=== PATIENT | male | born 1990 | race Caucasian/White ===

== ENCOUNTER 2019-07-21 13:34 | Emergency (ER) | payer MEDICAID, OTHER ==
[2019-07-21 13:45] VITALS: BP 120/78
--- NOTE | 2019-07-21 13:57 | UC ---
Throat Pain/Nasal Cas HPI - HPI Summary HPI Summary: fevers chills, cough and body aches for 3-4 days--- - History of Current Complaint Chief Complaint: UCGeneralIllness Stated Complaint: COUGH, AND ACHES Time Seen by Provider: 07/21/19 13:37 Hx Obtained From: Patient Onset/Duration: Sudden Onset, Lasting Days - 3-4, Still Present Pain Intensity: 7 Pain Scale Used: 0-10 Numeric Cough: Nonproductive Associated Signs & Symptoms: Positive: Fever Related History: Smoking - Allergies/Home Medications Allergies/Adverse Reactions: Allergies Allergy/AdvReac Type Severity Reaction Status Date / Time No Known Allergies Allergy Verified 07/21/19 13:47 Home Medications: Home Medications Buprenorp/Nalox 8-2 MG FILM [Suboxone 8 mg-2 mg Sl Film] 2 mis SL DAILY WITH MEAL 07/21/19 [History Confirmed 07/21/19] Omeprazole 20 mg PO DAILY WITH MEAL 07/21/19 [History Confirmed 07/21/19] PMH/Surg Hx/FS Hx/Imm Hx Previously Healthy: No - Opiate use disorder on MAT GI/ History: Gastroesophageal Reflux - Surgical History Surgical History: Yes Surgery Procedure, Year, and Place: R arm compound fracture 1995 - Family History Known Family History: Positive: Hypertension, Other - copd / asthma - Social History Occupation: Unemployed Lives: Alone - is homeless living in a hotel Alcohol Use: None Substance Use Type: None Smoking Status (MU): Heavy Every Day Tobacco Smoker Type: Cigarettes Amount Used/How Often: 1 ppd Length of Time of Smoking/Using Tobacco: 5 YRS Have You Smoked in the Last Year: Yes - Immunization History Most Recent Influenza Vaccination: 2012 Review of Systems All Other Systems Reviewed And Are Negative: Yes Constitutional: Positive: Chills, Fatigue Skin: Positive: Negative Eyes: Positive: Negative ENT: Positive: Sore Throat, Nasal Discharge, Sinus Congestion Respiratory: Positive: Cough Cardiovascular: Positive: Negative Gastrointestinal: Positive: Negative Genitourinary: Positive: Negative Motor: Positive: Negative Neurovascular: Positive: Negative Musculoskeletal: Positive: Arthralgia, Myalgia Neurological: Positive: Negative Psychological: Positive: Negative Is Patient Immunocompromised?: No Physical Exam Triage Information Reviewed: Yes Appearance: No Pain Distress, Well-Nourished, Ill-Appearing - mild Vital Signs: Initial Vital Signs Temp 98.7 F 07/21/19 13:42 Pulse 103 07/21/19 13:42 Resp 18 07/21/19 13:42 BP 120/78 07/21/19 13:42 Pulse Ox 95 07/21/19 13:42 Vital Signs Reviewed: Yes Eye Exam: Normal Eyes: Positive: Conjunctiva Clear ENT Exam: Normal ENT: Positive: Normal ENT inspection, Hearing grossly normal, Pharynx normal, TMs normal, Sinus tenderness, Uvula midline. Negative: Nasal congestion, Tonsillar swelling, Tonsillar exudate, Trismus, Muffled voice, Hoarse voice, Dental tenderness Dental Exam: Normal Neck exam: Normal Neck: Positive: Supple, Nontender Respiratory Exam: Other Respiratory: Positive: Chest non-tender, No respiratory distress, No accessory muscle use, Wheezing Cardiovascular Exam: Normal Cardiovascular: Positive: RRR, No Murmur, Pulses Normal, Brisk Capillary Refill Musculoskeletal Exam: Normal Musculoskeletal: Positive: Strength Intact, ROM Intact, No Edema Neurological Exam: Normal Neurological: Positive: Alert, Muscle Tone Normal, Fatigued Skin Exam: Normal Diagnostics - Laboratory Lab Results: influenza B+ Re-Evaluation - Re-Evaluation First Eval Change: Improved - increased air movement after neb-- Throat Pain/Nasal Course/Dx - Course Course Of Treatment: albuterol, ibuprofen increase fluids follow with pcp prn - Differential Dx/Diagnosis Provider Diagnosis: Influenza B, Nicotine dependence Discharge ED - Sign-Out/Discharge Documenting (check all that apply): Patient Departure All imaging exams completed and their final reports reviewed: No Studies - Discharge Plan Condition: Stable Disposition: HOME Prescriptions: Albuterol HFA INHALER* [Ventolin HFA Inhaler*] 2 puff INH Q4H PRN #1 mdi PRN Reason: Cough Ibuprofen TAB* [Motrin TAB* 600 MG] 600 mg PO Q6H PRN #40 tab PRN Reason: body aches, fever Patient Education Materials: Influenza (ED), Wheezing (ED) Referrals: [facility] [Outside] - If Needed - Billing Disposition and Condition Condition: STABLE Disposition: Home
[2019-07-21 14:10] LABS: Influenza B Molecular POSITIVE (Negative)
[2019-07-21] MEDS ORDERED: Albuterol/Ipratropium NEB.SOL* Albuterol 2.5 MG/Ipratropium 0.5 MG 3 ML INH ONE (14:11)
[2019-07-21] MEDS ORDERED: Ibuprofen TAB* 600 MG PO ONE (14:11)
== END 2019-07-21 14:47 | disposition home or self-care (01) ==
LOC: UCEAST 13:34
DX: J11.1 Influenza due to unidentified influenza virus with other respiratory manifestations (principal); K21.9 Gastro-esophageal reflux disease without esophagitis; F17.210 Nicotine dependence, cigarettes, uncomplicated; Z79.899 Other long term (current) drug therapy
CPT/HCPCS: 87651; 99202; A9270-GY; G0463

== ENCOUNTER 2019-10-11 09:42 | Emergency (ER) | payer OTHER ==
--- NOTE | 2019-10-11 10:06 | ED ---
Upper Extremity Pain - HPI Summary HPI Summary: 29 year old M arriving via private car to [facility] complains of right hand pain and swelling for 1 week. Patient is left handed. 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 He states he does a lot of squeezing and gripping at work. For the past week, his right hand has felt tense and tingly and his right arm has felt numb when he wakes up. This morning when he woke up, he wasn't able to close his right hand to make a fist. Symptoms aggravated by nothing. Symptoms alleviated by nothing. Medications reviewed. He has been taking naproxen 550 mg every 12 hours per nurse. On Suboxone. On Augmentin currently. Allergies noted. Current smoker. - History of Current Complaint Chief Complaint: EDExtremityUpper Stated Complaint: SWOLLEN RIGHT ARM PER PT Time Seen by Provider: 10/11/19 09:53 Hx Obtained From: Patient Onset/Duration: Started Weeks Ago - 1, Still Present, Worse Since - this morning Timing: Constant, Lasting Weeks - 1 Severity Currently: None Pain Location: Hand - R Aggravating Factor(s): Nothing Alleviating Factor(s): Nothing - Allergies/Home Medications Allergies/Adverse Reactions: Allergies Allergy/AdvReac Type Severity Reaction Status Date / Time No Known Allergies Allergy Verified 10/11/19 09:26 Home Medications: Home Medications Albuterol HFA INHALER* [Ventolin HFA Inhaler*] 2 puff INH Q4H PRN #1 mdi [Rx Confirmed 10/11/19] Buprenorp/Nalox 8-2 MG FILM [Suboxone 8 mg-2 mg Sl Film] 3 mis SL DAILY WITH MEAL 07/21/19 [History Confirmed 10/11/19] Omeprazole 20 mg PO DAILY WITH MEAL 07/21/19 [History Confirmed 10/11/19] Amoxicillin 500 mg PO TID 10/11/19 [History Confirmed 10/11/19] Gabapentin 800 mg PO TID 10/11/19 [History Confirmed 10/11/19] Ibuprofen TAB* [Motrin TAB* 800 MG] 800 mg PO TID PRN 10 Days #30 tab 10/11/19 [ Rx] Naproxen Sodium [Naproxen 550 mg tab] 1 tab PO Q12H 10/11/19 [History Confirmed 10/11/19] PMH/Surg Hx/FS Hx/Imm Hx Endocrine/Hematology History: Denies: Hx Diabetes, Hx Thyroid Disease Cardiovascular History: Denies: Hx Hypertension Respiratory History: Denies: Hx Asthma, Hx Chronic Obstructive Pulmonary Disease (COPD) Sensory History: Denies: Hx Contacts or Glasses Opthamlomology History: Denies: Hx Contacts or Glasses Psychiatric History: Reports: Hx Anxiety - CONTROL WITH MED - Surgical History Surgery Procedure, Year, and Place: R arm compound fracture 1995 Hx Anesthesia Reactions: No Infectious Disease History: No Infectious Disease History: Denies: Hx Hepatitis, Hx Human Immunodeficiency Virus (HIV), History Other Infectious Disease, Traveled Outside the [place] in Last 30 Days - Family History Known Family History: Positive: Hypertension, Other - copd / asthma Family History: DVT in aunt - Social History Alcohol Use: None Hx Substance Use: Yes Substance Use Type: Reports: Marijuana Substance Use Comment - Amount & Last Used: SUBOXONE AND MARIJUANA Hx Tobacco Use: Yes Smoking Status (MU): Heavy Every Day Tobacco Smoker Type: Cigarettes Amount Used/How Often: 1 ppd Length of Time of Smoking/Using Tobacco: 5 YRS Have You Smoked in the Last Year: Yes Review of Systems Positive: Other - right hand pain and swelling Neurological/Mental Status: Other - right hand has felt tense and tingly Positive: Numbness All Other Systems Reviewed And Are Negative: Yes Physical Exam - Summary Physical Exam Summary: General: Well appearing, no distress HEENT: PERRL Cardiovascular: Skin is well perfused Pulmonary: No respiratory distress, no tachypnea Abdomen: Non-distended Skin: Warm, pink, dry MSK: No edema, tenderness of dorsal R hand R Hand PE Motor: Opposition of thumb and first finger intact Able to cross first and second finger Able to extend thumb Able to flex and extend wrist Able to spread fingers Sensory: Sensation intact in 1st, 2nd, and 5th digits Pulse: 2+ radial pulse intact. Brisk cap refill. No tenderness snuffbox Psych: Normal affect Neuro: A&Ox3 Triage Information Reviewed: Yes Vital Signs On Initial Exam: Initial Vitals Temp Pulse Resp BP Pulse Ox 97.5 F 67 15 118/76 95 10/11/19 09:48 10/11/19 09:48 10/11/19 09:48 10/11/19 09:48 10/11/19 09:48 Vital Signs Reviewed: Yes Procedures - Sedation Patient Received Moderate/Deep Sedation with Procedure: No Diagnostics - Vital Signs Vital Signs Temp Pulse Resp BP Pulse Ox 10/11/19 09:48 97.5 F 67 15 118/76 95 - Laboratory Lab Statement: Any lab studies that have been ordered have been reviewed, and results considered in the medical decision making process. Course/Dx - Course Course Of Treatment: 29 y/o male p/w R hand pain likely in setting of overuse injury. - Exam w mild tendernes R hand, strength 5/5, no swelling. 2+ radial pulse. - likely in setting of overuse from work, on naproxen. Told he can try motrin (but to stop naproxen). Off for the next 3 days. Return for worsening. Do not suspect DVT - Diagnoses Provider Diagnoses: Hand pain Discharge ED - Sign-Out/Discharge Documenting (check all that apply): Patient Departure - Discharge Plan Condition: Stable Disposition: HOME Prescriptions: Ibuprofen TAB* [Motrin TAB* 800 MG] 800 mg PO TID PRN 10 Days #30 tab PRN Reason: Pain - Moderate Patient Education Materials: Arthralgia (ED) Referrals: [facility] [Outside] Additional Instructions: You were seen in the emergency department for hand pain. You can take Motrin 800 mg every 6-8 hours for pain. Do not take Motrin and naproxen same time. Please follow up with your primary care doctor in next 2-3 days and return to emergency department for worsening and, swelling of the hand, redness, or concerning symptoms. It was a pleasure taking care of you today. - Billing Disposition and Condition Condition: STABLE Disposition: Home - Attestation Statements Document Initiated by Scribe: Yes Documenting Scribe: Jodi Cash Provider For Whom Vidal is Documenting (Include Credential): Nathalia Temple MD Scribe Attestation: I, Jodi Cash, scribed for Nathalia Temple MD on 10/11/19 at 1024. Scribe Documentation Reviewed: Yes Provider Attestation: The documentation as recorded by the scribeJodi accurately reflects the service I personally performed and the decisions made by me, Nathlaia Temple MD Status of Scribe Document: Viewed
[2019-10-11] MEDS ORDERED: Ibuprofen TAB* 600 MG PO ONE (10:07)
[2019-10-11] MEDS ORDERED: Acetaminophen TAB* 325 MG PO ONE (10:09)
[2019-10-11 10:29] VITALS: BP 126/60
== END 2019-10-11 10:28 | disposition home or self-care (01) ==
LOC: ED 09:42
DX: M79.641 Pain in right hand (principal); R20.0 Anesthesia of skin; F17.210 Nicotine dependence, cigarettes, uncomplicated; Z79.899 Other long term (current) drug therapy; Z79.891 Long term (current) use of opiate analgesic; F41.9 Anxiety disorder, unspecified
CPT/HCPCS: 99282; A9270-GY

== ENCOUNTER 2019-10-11 09:48 | Emergency (ER) | payer MEDICAID, OTHER ==
[2019-10-11 09:34] VITALS: BP 118/76
== END 2019-10-11 09:50 | disposition left against medical advice (07) ==
LOC: ED 09:48
DX: M79.89 Other specified soft tissue disorders (principal); Z53.21 Procedure and treatment not carried out due to patient leaving prior to being seen by health care provider
CPT/HCPCS: 99282